=== PATIENT | male | born 1945 | race Caucasian/White ===

== ENCOUNTER 2018-05-10 08:55 | Emergency (ER) | payer MEDICARE ==
[2018-05-10 08:56] VITALS: BMI 24.7
--- NOTE | 2018-05-10 11:19 | CT ---
Date of service: 05/10/2018 PROCEDURE: CT OF THE TEMPORAL BONES WITHOUT CONTRAST HISTORY: R ear and mastoid pain COMPARISON: None available. TECHNIQUE: High resolution axial images of the temporal bones were obtained. Coronal and sagittal reformats were generated. Radiation dose: Total exam DLP = 629.21 mGy-cm. This CT exam was performed using one or more of the following dose reduction techniques: Automated exposure control, adjustment of the mA and/or kV according to patient size, and/or use of iterative reconstruction technique. FINDINGS: RIGHT TEMPORAL BONE: RIGHT MIDDLE EAR: Well aerated with normal ossicular chain appreciated. RIGHT INNER EAR: Cochlea: Normal. Semicircular canals: Normal. RIGHT MASTOID AIR CELLS: Trace inferior right mastoid effusions with the majority of the right mastoid air cell complex well aerated. No destructive bony changes appreciable. RIGHT INTERNAL AUDITORY CANAL: Normal. RIGHT EXTERNAL AUDITORY CANAL: Normal. RIGHT VESTIBULAR AND COCHLEAR AQUEDUCT: Normal. OTHER FINDINGS: None. LEFT TEMPORAL BONE: LEFT MIDDLE EAR: Well-aerated with normal ossicular chain appreciated. LEFT INNER EAR: Cochlea: Normal. Semicircular canals: Normal. LEFT MASTOID AIR CELLS: Normal. LEFT INTERNAL AUDITORY CANAL: Normal. LEFT EXTERNAL AUDITORY CANAL: Normal. LEFT VESTIBULAR AND COCHLEAR AQUEDUCTS: Normal. OTHER FINDINGS: None. IMPRESSION: Trace right mastoid effusions. No destructive bony changes throughout the skullbase including the bilateral temporal bones diffusely. No evidence to suggest otitis media bilaterally.
--- NOTE | 2018-05-10 11:26 | ED PDOC ---
HPI: General Adult Time Seen by Provider: 05/10/18 09:19 Chief Complaint (Nursing): ENT Problem Chief Complaint (Provider): R ear pain History Per: Patient History/Exam Limitations: no limitations Onset/Duration Of Symptoms: Days (2) Current Symptoms Are (Timing): Still Present Severity: Moderate Additional Complaint(s): 73yo male hx renal transplant on immunosuppressants presents c/o R ear pain ongoing for 2 days, denies change in hearing, fever, sore throat or nasal symptoms. Pain sharp radiates from behind ear to head. Denies weakness, change vision or neck pain. Past Medical History Reviewed: Historical Data, Nursing Documentation, Vital Signs Vital Signs: Last Vital Signs Temp 98.3 F 05/10/18 13:28 Pulse 60 05/10/18 13:28 Resp 18 05/10/18 13:28 BP 152/84 H 05/10/18 13:28 Pulse Ox 96 05/11/18 10:34 - Medical History PMH: Depression (10 YEARS AGO), Gastritis, HTN, Hypercholesterolemia, Pneumonia (LONG AGO), Chronic Kidney Disease (kidney transplant 2001) - Surgical History Surgical History: Back Surgery, Cholecystectomy, Endoscopy - Family History Family History: States: Unknown Family Hx - Social History Current smoker - smoking cessation education provided: No - Home Medications Home Medications: Ambulatory Orders Medication Instructions Recorded Aspirin [Aspirin EC] 81 mg PO DAILY 10/13/14 Esomeprazole Magnesium [Nexium] 40 mg PO DAILY 10/13/14 Multivitamin/Iron/Folic Acid 1 tab PO DAILY 10/13/14 [Centrum] Mycophenolate Mofetil [Cellcept] 1,000 mg PO BID 10/13/14 Tamsulosin [Flomax] 0.4 mg PO DAILY 10/13/14 Calcium Carbonate [Oscal] 1 tab PO DAILY 04/27/18 Folic Acid 1 tab PO DAILY 04/27/18 Metoprolol Tartrate [Lopressor] 1 tab PO BID 04/27/18 Tacrolimus [Prograf Cap] 1 cap PO BID 04/27/18 Valsartan [Diovan] 1 tab PO DAILY 04/27/18 hydrALAZINE [Apresoline] 1 tab PO BID 04/27/18 traMADol [Ultram] 50 mg PO TID PRN #10 tab 05/10/18 - Allergies Allergies/Adverse Reactions: Allergies Allergy/AdvReac Type Severity Reaction Status Date / Time No Known Allergies Allergy Verified 05/10/18 09:21 Review of Systems Constitutional: Negative for: Fever Eyes: Negative for: Vision Change ENT: Positive for: Ear Pain. Negative for: Ear Discharge, Nose Discharge, Nose Congestion, Mouth Pain, Mouth Swelling, Throat Pain, Throat Swelling Cardiovascular: Negative for: Chest Pain Respiratory: Negative for: Shortness of Breath Musculoskeletal: Negative for: Neck Pain Skin: Negative for: Rash Neurological: Negative for: Weakness, Headache, Dizziness Physical Exam - Reviewed Nursing Documentation Reviewed: Yes Vital Signs Reviewed: Yes - Physical Exam Appears: Positive for: Well, Non-toxic Head Exam: Positive for: ATRAUMATIC Eye Exam: Positive for: Normal appearance, EOMI ENT: Positive for: TM Is/Are (unremarkable bilaterally). 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 Negative for: Motor/Sensory Deficits - ECG O2 Sat by Pulse Oximetry: 96 Medical Decision Making Medical Decision Making: given pain and unremarkable clinical exam CT IAC ordered, mastoids also r/o mastoiditis vs other mod amount cerumen removed w small currette from R Auditory canal for better visualization of TM. Tolerated well. No bleeding thereafter. Accession No. 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 [ Addendum Report Added by Zeb Castillo MD at 05/10/2018 11:19:16 ] Date of service: 05/10/2018 PROCEDURE: CT OF THE TEMPORAL BONES WITHOUT CONTRAST HISTORY: R ear and mastoid pain COMPARISON: None available. TECHNIQUE: High resolution axial images of the temporal bones were obtained. Coronal and sagittal reformats were generated. Radiation dose: Total exam DLP = 629.21 mGy-cm. This CT exam was performed using one or more of the following dose reduction techniques: Automated exposure control, adjustment of the mA and/or kV according to patient size, and/or use of iterative reconstruction technique. FINDINGS: RIGHT TEMPORAL BONE: RIGHT MIDDLE EAR: Well aerated with normal ossicular chain appreciated. RIGHT INNER EAR: Cochlea: Normal. Semicircular canals: Normal. RIGHT MASTOID AIR CELLS: Trace inferior right mastoid effusions with the majority of the right mastoid air cell complex well aerated. No destructive bony changes appreciable. RIGHT INTERNAL AUDITORY CANAL: Normal. RIGHT EXTERNAL AUDITORY CANAL: Normal. RIGHT VESTIBULAR AND COCHLEAR AQUEDUCT: Normal. OTHER FINDINGS: None. LEFT TEMPORAL BONE: LEFT MIDDLE EAR: Well-aerated with normal ossicular chain appreciated. LEFT INNER EAR: Cochlea: Normal. Semicircular canals: Normal. LEFT MASTOID AIR CELLS: Normal. LEFT INTERNAL AUDITORY CANAL: Normal. LEFT EXTERNAL AUDITORY CANAL: Normal. LEFT VESTIBULAR AND COCHLEAR AQUEDUCTS: Normal. OTHER FINDINGS: None. IMPRESSION: Trace right mastoid effusions. No destructive bony changes throughout the skullbase including the bilateral temporal bones diffusely. No evidence to suggest otitis media bilaterally. d/w Dr Cornelius ENT- no Abx for now, send to office this afternoon if pain persists. Disposition - Clinical Impression Clinical Impression: Otalgia of right ear - Patient ED Disposition Is Patient to be Admitted: No Counseled Patient/Family Regarding: Studies Performed, Diagnosis, Need For Followup - Disposition Referrals: Rey Cornelius MD [Staff Provider] - Disposition: Routine/Home Disposition Time: 12:35 Condition: STABLE Additional Instructions: See Dr Cornelius this afternoon if pain persists. Take medication as directed. Prescriptions: traMADol [Ultram] 50 mg PO TID PRN #10 tab PRN Reason: Pain, Moderate (4-7) Instructions: Ear Wax Impaction Forms: [facility] (Mongolian)
[2018-05-10 13:29] VITALS: BP 152/84; PULSE 60; RESP 18; TEMP 98.3
[2018-05-11 10:35] VITALS: O2SAT 96
== END 2018-05-10 13:30 | disposition home or self-care (01) ==
LOC: H.ER 08:55
DX: H92.01 Otalgia, right ear (principal); E78.00 Pure hypercholesterolemia, unspecified; Z94.0 Kidney transplant status; I12.9 Hypertensive chronic kidney disease with stage 1 through stage 4 chronic kidney disease, or unspecified chronic kidney disease

== ENCOUNTER 2019-02-02 17:51 | Emergency (ER) | payer MEDICARE, SELFPAY ==
[2019-02-02 17:51] VITALS: BMI 24.7
[2019-02-02 18:22] VITALS: O2SAT 96
--- NOTE | 2019-02-02 19:13 | ED PDOC ---
HPI: General Adult Time Seen by Provider: 02/02/19 19:09 Chief Complaint (Nursing): ENT Problem Chief Complaint (Provider): FACIAL INJURY History Per: Patient (74 Y/O MALE HERE WITH FACIAL INJURY THAT OCCURRED TODAY WHEN HE TRIPPED AND FELL FORWARD. NO LOC. NOTES NOSE BLEEDING CONTROLLED NOW IN ED AFTER PATIENT PLACED ROLLED NONADHERENT DRESSING IN RIGHT NARE. PATIENT DENIES ANY BLOOD THINNERS. STATES HE IS ON ASA.) Past Medical History Reviewed: Historical Data, Nursing Documentation, Vital Signs Vital Signs: Last Vital Signs Temp 98.2 F 02/02/19 18:17 Pulse 65 02/02/19 18:17 Resp 16 02/02/19 18:17 BP 175/87 H 02/02/19 18:17 Pulse Ox 96 02/02/19 18:17 Primary Care Provider: Ivan Johnston - Medical History PMH: Depression (10 YEARS AGO), Gastritis, HTN, Pneumonia (LONG AGO), Chronic Kidney Disease (kidney transplant 2001) Denies: Hypercholesterolemia - Surgical History Surgical History: Back Surgery, Cholecystectomy, Endoscopy - Family History Family History: States: Unknown Family Hx - Home Medications Home Medications: Ambulatory Orders Medication Instructions Recorded Aspirin [Aspirin EC] 81 mg PO DAILY 10/13/14 Esomeprazole Magnesium [Nexium] 40 mg PO DAILY 10/13/14 Multivitamin/Iron/Folic Acid 1 tab PO DAILY 10/13/14 [Centrum] Mycophenolate Mofetil [Cellcept] 1,000 mg PO BID 10/13/14 Tamsulosin [Flomax] 0.4 mg PO DAILY 10/13/14 Calcium Carbonate [Oscal] 1 tab PO DAILY 04/27/18 Folic Acid 1 tab PO DAILY 04/27/18 Metoprolol Tartrate [Lopressor] 1 tab PO BID 04/27/18 Tacrolimus [Prograf Cap] 1 cap PO BID 04/27/18 Valsartan [Diovan] 1 tab PO DAILY 04/27/18 hydrALAZINE [Apresoline] 1 tab PO BID 04/27/18 traMADol [Ultram] 50 mg PO TID PRN #10 tab 05/10/18 - Allergies Allergies/Adverse Reactions: Allergies Allergy/AdvReac Type Severity Reaction Status Date / Time No Known Allergies Allergy Verified 02/02/19 18:17 Review of Systems ROS Statement: Except As Marked, All Systems Reviewed And Found Negative Neurological: Positive for: Other (HEAD INJURY) Physical Exam - Reviewed Nursing Documentation Reviewed: Yes Vital Signs Reviewed: Yes - Physical Exam Appears: Positive for: Well, Non-toxic, No Acute Distress Head Exam: Positive for: ATRAUMATIC, NORMAL INSPECTION, NORMOCEPHALIC Skin: Positive for: Normal Color, Warm, DRY Eye Exam: Positive for: EOMI, Normal appearance, PERRL ENT: Positive for: Other (NO ACTIVE BLEEDING NOTED. RIGHT MEDIAL NARE WITH SMALL ABRASION NOTED .). Negative for: Normal ENT Inspection Neck: Positive for: Normal, Painless ROM Cardiovascular/Chest: Positive for: Regular Rate, Rhythm Respiratory: Positive for: CNT, Normal Breath Sounds Gastrointestinal/Abdominal: Positive for: Normal Exam, Soft Back: Positive for: Normal Inspection Extremity: Positive for: Normal ROM Neurological/Psych: Positive for: Awake, Alert, Normal Tone - ECG O2 Sat by Pulse Oximetry: 96 Disposition - Clinical Impression Clinical Impression: Facial injury, Head injury - Patient ED Disposition Is Patient to be Admitted: Transfer of Care - Disposition Disposition: Transfer of Care Disposition Time: 20:16 Condition: FAIR Instructions: Closed Head Injury (DC), Nosebleeds (DC) Patient Signed Over To: Elfego Medina Handoff Comments: pending ct face/head and re-eval
--- NOTE | 2019-02-02 20:42 | ED PDOC ---
- ECG O2 Sat by Pulse Oximetry: 96 Medical Decision Making Medical Decision Makin:00 Patient signed out to this provider from Frankie WOLFE. Pending imaging and reevaluation. 20:03 CT Head FINDINGS: BRAIN: No acute intraparenchymal hemorrhage. No mass lesion. No CT evidence for acute territorial infarct. No midline shift or extra-axial collections. There is mild periventricular white matter ischemic change . VENTRICLES: No hydrocephalus. ORBITS: The orbits are unremarkable. SINUSES AND MASTOIDS: The paranasal sinuses and mastoid air cells are clear. BONES: No fracture. SOFT TISSUES: Unremarkable. IMPRESSION: No acute intracranial abnormality. Mild periventricular white matter ischemic change. 20:[address] FINDINGS: BONES: No acute fracture or aggressive appearing osseous lesion. The mandible is int act. SOFT TISSUES: The soft tissues are unremarkable. SINUSES: Mild inflammatory changes suspected within the maxillary mild inflammatory changes within the maxillary and ethmoid sinuses with postsurgical changes at the medial aspect left maxillary sinus. ORBITS: The orbits are normal. No retrobulbar hematoma or mass. IMPRESSION: No acute fracture. Mild inflammatory changes within the ethmoid and left maxillary sinus. Postsurgical changes present. 20:[address] FINDINGS: ALIGNMENT: Bony alignment is anatomic. DEGENERATIVE CHANGES: There is advanced hypertrophic and degenerative change with disc space narrowing chronic disc disease mainly at the C5-C6 and C6-C7 levels. SOFT TISSUES: The prevertebral soft tissues are within normal limits. BONES: No acute fracture or aggressive appearing osseous lesion. IMPRESSION: No acute cervical spine abnormality. Hypertrophic and degenerative change of chronic disc disease at the C5-C6 and C6-C7 levels. 21:25 on my eval of pt, resting comfortably, reports he has no symptoms as this time, nose bleed has been controlled, denies headache, nose pain, changes in vision pt is neurologically intact, no nasal bone tenderness or swelling, no septal hematoma, no bleeding Discussed results, diagnosis, treatment, return precautions and f/u with pt who is understanding, in agreement and stable for dc Disposition Counseled Patient/Family Regarding: Studies Performed, Diagnosis, Need For Followup - Clinical Impression Clinical Impression: Facial injury, Head injury, Epistaxis, Fall from slip, trip, or stumble, Disc disease, degenerative, cervical - POA Present On Arrival: Falls Or Trauma - Disposition Referrals: Ivan Johnston MD [Medical Doctor] - Disposition: Routine/Home Disposition Time: 21:35 Condition: STABLE Additional Instructions: Thank you for letting us take care of you today. The emergency medical care you received today was directed at your acute symptoms. If you were prescribed any medication, please fill it and take as directed. It may take several days for your symptoms to resolve. Return to the Emergency Department if your symptoms worsen, do not improve, or if you have any other problems. Please contact your doctor in 2 days for re-evaluation and follow up / or call one of the physicians/clinics you have been referred to that are listed on the Patient Visit Information form that is included in your discharge packet. Bring any paperwork you were given at discharge with you along with any medications you are taking to your follow up visit. Our treatment cannot replace ongoing medical care by a primary care provider (PCP) outside of the emergency department. Instructions: Closed Head Injury (DC), Degenerative Disc Disease (DC), Nosebleeds (DC) Forms: [employer] (Chinese) Print Language: ITALIAN
[2019-02-02 21:44] VITALS: BP 170/95; PULSE 88; RESP 18; TEMP 98
--- NOTE | 2019-02-03 15:34 | CT ---
Date of service: 02/02/2019 PROCEDURE: CT HEAD WITHOUT CONTRAST. HISTORY: Head injury COMPARISON: None available. TECHNIQUE: Axial computed tomography images were obtained through the head/brain without intravenous contrast. Radiation dose: Total exam DLP = 909.8 mGy-cm. This CT exam was performed using one or more of the following dose reduction techniques: Automated exposure control, adjustment of the mA and/or kV according to patient size, and/or use of iterative reconstruction technique. FINDINGS: HEMORRHAGE: No acute parenchymal, subarachnoid or extra-axial hemorrhage. BRAIN: Mild chronic periventricular white matter ischemic changes seen extending peripherally into the deep and subcortical white matter both cerebral hemispheres. Mild moderate generalized volume loss. VENTRICLES: Unremarkable. No hydrocephalus. CALVARIUM: Unremarkable. PARANASAL SINUSES: Moderate sclerosis and wall thickening of the left maxillary sinus. Apparent antrostomy defect medial wall left maxillary sinus.Mild mucosal thickening seen within several ethmoid air cells. MASTOID AIR CELLS: Unremarkable as visualized. No inflammatory changes. OTHER FINDINGS: Changes of right-sided cataract surgery IMPRESSION: Normal CT of the Head. Mild chronic periventricular white matter ischemic changes seen extending peripherally into the deep and subcortical white matter both cerebral hemispheres. Mild moderate generalized volume loss.
--- NOTE | 2019-02-03 15:38 | CT ---
Date of service: 02/02/2019 PROCEDURE: CT MAXILLOFACIAL BONES WITHOUT CONTRAST HISTORY: FACIAL INJURY COMPARISON: Correlation made with concurrent CT scan of the brain TECHNIQUE: Contiguous axial CT images of the maxillofacial bones were obtained. Coronal and sagittal reformats were generated. Radiation dose: Total exam DLP = 816.99 mGy-cm. This CT exam was performed using one or more of the following dose reduction techniques: Automated exposure control, adjustment of the mA and/or kV according to patient size, and/or use of iterative reconstruction technique. FINDINGS: NASAL BONES: Unremarkable. ORBITS: Changes of bilateral cataract surgery. PARANASAL SINUSES/ MASTOIDS: There is thickening and sclerosis of the posterolateral and less so the anterolateral king left maxillary antrum. Apparent antrostomy defect medial wall left maxillary antrum. Mild mucosal thickening within several ethmoid air cells.. Minor mucosal thickening both maxillary antra. MAXILLA: Unremarkable. MANDIBLE/ TEMPOROMANDIBULAR JOINTS: Unremarkable. SKULL BASE: Unremarkable. TEMPORAL BONES: Middle ears and mastoid grossly unremarkable. OTHER FINDINGS: None. No evidence of acute maxillofacial skeletal fractures IMPRESSION: No evidence of acute maxillofacial skeletal fractures. Medial wall antrostomy defect left maxillary sinus. Thickening and sclerosis posterolateral and to a lesser degree anterior king left maxillary sinus. Minor mucosal thickening both maxillary antra as well as multiple ethmoid air cells.
--- NOTE | 2019-02-03 15:42 | CT ---
Date of service: 02/02/2019 PROCEDURE: CT Cervical Spine without contrast HISTORY: FALL INJRUY COMPARISON: None available. TECHNIQUE: Axial computed tomography images were obtained of the cervical spine without the use of intravenous contrast. Coronal and sagittal reformatted images were created and reviewed. Radiation dose: Total exam DLP = 400.51 mGy-cm. This CT exam was performed using one or more of the following dose reduction techniques: Automated exposure control, adjustment of the mA and/or kV according to patient size, and/or use of iterative reconstruction technique. FINDINGS: VERTEBRAE: No acute compression fractures nor retropulsed fragments. Vertebral bodies exhibit normal stature. Vertebral bodies and facets normally aligned. DISCS/SPINAL CANAL/NEURAL FORAMINA: Multilevel degenerative spondylosis. Changes include varying degrees of disc space narrowing, small posterior osteophytic ridge disc bulge changes as well as hypertrophic uncovertebral and facet joints.. Changes most notably affect the C5-C6 and C6-C7 as well as C2-3 levels. PARASPINAL SOFT TISSUES: Unremarkable. OTHER FINDINGS: Lung apices clear IMPRESSION: No acute fractures. Multilevel degenerative spondylosis.
== END 2019-02-02 21:41 | disposition home or self-care (01) ==
LOC: H.ER 17:51
DX: S09.90XA Unspecified injury of head, initial encounter (principal); S09.93XA Unspecified injury of face, initial encounter; R04.0 Epistaxis; W19.XXXA Unspecified fall, initial encounter; Y92.89 Other specified places as the place of occurrence of the external cause; Z94.0 Kidney transplant status